=== PATIENT | female | born 2000 | race Caucasian/White ===

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

== ENCOUNTER → 2018-01-01 | Outpatient (REF) | payer OTHER ==
[2018-01-01 13:16] LABS: APPEARANCE, URINE CLEAR (CLEAR); BACTERIA, URINE AUTO NEGATIVE (NEGATIVE); BILIRUBIN, URINE AUTO NEGATIVE (NEGATIVE); BLOOD, URINE BLOOD NEGATIVE (NEGATIVE); COLOR, URINE YELLOW (YELLOW); GLUCOSE, URINE (UA) AUTO NEGATIVE (NEGATIVE); KETONE, URINE AUTO NEGATIVE (NEGATIVE); LEUKOCYTE ESTERASE, URINE AUTO NEGATIVE (NEGATIVE); MUCUS, URINE SMALL (NEGATIVE); NITRITE, URINE AUTO NEGATIVE (NEGATIVE); PROTEIN, URINE AUTO NEGATIVE (NEGATIVE); RBC, URINE AUTO 1 /HPF (0-3); SPECIFIC GRAVITY URINE AUTO 1.023 (1.002-1.035); SQUAMOUS EPITHELIAL CELL UR AU 0 /HPF (0-6); UROBILINOGEN, URINE AUTO 0.2 mg/dL (0.0-2.0); WBC, URINE AUTO 1 /HPF (0-3)
== END ==
LOC: M SMT 12:58
DX: R35.0 Frequency of micturition (principal)

== ENCOUNTER → 2018-05-10 | Outpatient (REF) | payer OTHER ==
[2018-05-10 14:14] LABS: FOLATE 11.4 NG/ML; TOTAL 25(OH) VITAMIN D 19.2 NG/ML (30.0-100.0); VITAMIN B12 LEVEL 805 PG/ML
== END ==
LOC: M LAB REF 11:53
DX: G25.0 Essential tremor (principal)

== ENCOUNTER 2019-08-04 11:50 | Emergency (ER) | payer BC, OTHER ==
[~2019-08-04] VITALS: Ht 154.9 cm; Wt 78.4 kg
[2019-08-04] MEDS ORDERED: PRENTAB29 (12:00)
[2019-08-04 12:41] LABS: BASO # 0.1 10^3/uL (0.0-0.2); BASO % 0.4 % (0.0-1.0); EOS % 0.1 % (0.0-3.0); HEMATOCRIT 42.5 % (36.0-47.0); HEMOGLOBIN 13.4 g/dl (12.0-15.5); LYMPH # 2.1 10^3/uL (1.5-5.0); LYMPH % 15.2 % (24.0-44.0); MEAN CORPUSCULAR HGB CONC 31.5 g/dl (32.0-36.5); MEAN CORPUSCULAR VOLUME 85.7 fl (80.0-96.0); MONO # 0.5 10^3/uL (0.0-0.8); NEUTROPHILS # 10.8 10^3/uL (1.5-8.5); NEUTROPHILS % 79.8 % (36.0-66.0); PLATELET COUNT, AUTOMATED 361 10^3/uL (150-450); RED BLOOD COUNT 4.96 10^6/uL (4.00-5.40); WHITE BLOOD COUNT 13.5 10^3/uL (4.0-10.0)
[2019-08-04 13:22] LABS: BLOOD UREA NITROGEN 12 MG/DL (7-18); CALCIUM LEVEL 8.9 MG/DL (8.5-10.1); CARBON DIOXIDE LEVEL 20 MEQ/L (21-32); CHLORIDE LEVEL 106 MEQ/L (98-107); GLOMERULAR FILTRATION RATE > 60.0 (>60); GLUCOSE, FASTING 67 MG/DL (70-100); HCG, SERUM QUANTITATIVE 61584 MIU/ML; POTASSIUM SERUM 4.5 MEQ/L (3.5-5.1); SODIUM LEVEL 135 MEQ/L (136-145)
[2019-08-04] MEDS ORDERED: NS 1,000 ML IV ONE (14:30)
[2019-08-04] MEDS ORDERED: ONDANSETRON 4MG/2ML VIAL (J2405) IV ONE ×2 (14:30→17:45)
--- NOTE | 2019-08-04 17:22 | REPVR ---
PROCEDURE INFORMATION: Exam: US First Trimester, Transabdominal Exam date and time: 08/04/2019 4:57 PM Age: 19 years old Clinical indication: complicated by abdominal or pelvic pain; Generalized abdominal pain; First trimester; Gestational age or lmp: 6 weeks 2 days; ; Additional info: 6wks, diffuse abd pain TECHNIQUE: Imaging protocol: Real-time transabdominal obstetrical ultrasound of the maternal pelvis and a first trimester , less than 14 weeks 0 days, with image documentation. COMPARISON: No relevant prior studies are available. FINDINGS: GESTATION: Gestation: Single living intrauterine gestation. Heart rate: 136 bpm. No subchorionic bleed. LAST MENSTRUAL PERIOD: LMP: Not provided. BIOMETRICS: [place]-rump length: 0.8 cm = 6 weeks 5 days. Ultrasound estimated date of delivery is 03/24/20. MATERNAL: Uterus: Unremarkable. Cervix: Unremarkable. Right adnexa: The right ovary is normal in size. Left adnexa: The left ovary is enlarged, 4.5 x 4.1 x 3.9 cm. It contains a 3.9 x 3.4 x 2.7 cm anechoic structure with a vascular rim, which is consistent with a corpus luteal cyst. Intraperitoneal: No intraperitoneal free fluid. IMPRESSION: Normal . Ultrasound estimated gestational age is 6 weeks 5 days. Ultrasound estimated date of delivery is 03/24/20. 3.9 cm anechoic cyst in the left ovary. Electronically signed by: Edison Webster On 08/04/2019 17:21:45 PM
--- NOTE | 2019-08-04 17:24 | REPVR ---
PROCEDURE INFORMATION: Exam: US Retroperitoneal Limited, Kidneys Exam date and time: 08/04/2019 4:57 PM Age: 19 years old Clinical indication: Abdominal pain; Generalized; ; Additional info: 6wks, diffuse abd pain TECHNIQUE: Imaging protocol: Real-time ultrasound of the retroperitoneum with image documentation. Examination was focused on the kidneys. COMPARISON: No relevant prior studies available. FINDINGS: Limitations: Only 2 images of the bladder. Right kidney: The right kidney is normal in size. It is 11.0 x 5.9 x 4.8 cm. There is no stone, solid right renal mass, cortical loss or hydronephrosis. Left kidney: The left kidney is normal in size. It is 11.4 x 5.2 x 6.1 cm. There is no stone, solid left renal mass, cortical loss or hydronephrosis. Bladder: The bladder is normal without wall thickening, mass or stone. There are normal bilateral ureteral jets. IMPRESSION: Normal kidneys and bladder. Electronically signed by: Edison Webster On 08/04/2019 17:24:06 PM
[2019-08-04] MEDS ORDERED: KEFL500C17 PO (17:58)
[2019-08-04] MEDS ORDERED: ONDA4TAB6 PO (17:58)
[2019-08-04 18:06] VITALS: BP 130/62
== END 2019-08-04 18:17 | disposition home or self-care (01) ==
LOC: M ED 11:50
DX: O26.891 Other specified pregnancy related conditions, first trimester (principal); M54.5 Low back pain; O20.9 Hemorrhage in early pregnancy, unspecified; O23.41 Unspecified infection of urinary tract in pregnancy, first trimester; O34.81 Maternal care for other abnormalities of pelvic organs, first trimester; N83.202 Unspecified ovarian cyst, left side; Z3A.01 Less than 8 weeks gestation of pregnancy
CPT/HCPCS: 76775; 76801; 80048; 81001; 84702; 85025; 86901; 87086; 93976; 96361; 96374; 96376; 99284; J2405

== ENCOUNTER → 2019-08-16 | Outpatient (CLI) | payer BC ==
[~2019-08-16] MED LIST: KEFL500C17 PO; ONDA4TAB6 PO; PRENTAB29
[2019-08-16 18:27] LABS: BASO # 0.1 10^3/uL (0.0-0.2); BASO % 0.5 % (0.0-1.0); EOS # 0.1 10^3/uL (0.0-0.5); HEMATOCRIT 39.4 % (36.0-47.0); HEMOGLOBIN 12.6 g/dl (12.0-15.5); LYMPH # 2.8 10^3/uL (1.5-5.0); MEAN CORPUSCULAR VOLUME 84.5 fl (80.0-96.0); MONO # 0.6 10^3/uL (0.0-0.8); MONO % 6.1 % (0.0-5.0); NEUTROPHILS # 5.8 10^3/uL (1.5-8.5); PLATELET COUNT, AUTOMATED 307 10^3/uL (150-450); RED BLOOD COUNT 4.66 10^6/uL (4.00-5.40); WHITE BLOOD COUNT 9.4 10^3/uL (4.0-10.0)
[2019-08-16 19:59] LABS: CHLAMYDIA DNA AMPLIFICATION NEGATIVE (NEGATIVE); GC DNA AMPLIFICATION NEGATIVE (NEGATIVE)
[2019-08-17 09:31] LABS: HEPATITIS C VIRUS ABY INDEX < 0.0 INDEX (<0.8); HIV 1&2 SCREEN CENTAUR NEGATIVE (NEGATIVE); RUBELLA IgG QUALITATIVE IMMUNE (IMMUNE)
== END ==
LOC: M PLALAB 13:47
PROVIDERS: ATTEND Advanced Practice Midwife
DX: Z34.01 Encounter for supervision of normal first pregnancy, first trimester (principal)

== ENCOUNTER → 2019-10-31 | Outpatient (CLI) | payer BC ==
--- NOTE | 2019-11-01 05:57 | REP ---
Clinical: Anatomical evaluation. Comparison: 08/04/2019 . Findings: Examination demonstrates a single live intrauterine in cephalic presentation. motion is identified by technologist. Placenta is noted posterior and grade zero without evidence for placenta previa or abruption. Amniotic fluid volume is normal. Cervix measures 3.3 cm in length and appears closed. No evidence for nuchal cord. Gestational age by LMP 18 weeks 6 days with MADHU 03/27/2020 . Gestational age by current measurements 19 weeks 2 days with [facility] 03/24/2020 . FHR equals 163 beats per minute. BPD 4.6 cm 19 weeks 6 days HC 17.0 cm 19 weeks 4 days AC 13.9 cm 19 weeks 2 days FL 2.9 cm 19 weeks 0 days HL 2.8 cm 19 weeks 0 days HC/AC ratio 1.22 Estimated weight 280 grams ( 60th percentile). Anatomical assessment demonstrates normal structures including cranium, choroid plexus, cavum, cerebellum/posterior fossa, lungs, four-chamber heart, diaphragm, stomach, cord insertion/three-vessel cord, kidneys/bladder, spine, and extremities. Impression: 1. Single live intrauterine in cephalic presentation demonstrating appropriate estimated weight and growth. 2. Limited evaluation of the facial features and cardiac ventricular outflow tracts. Remainder of the anatomical assessment is complete and normal.
== END ==
LOC: M WHC 10:33
PROVIDERS: ATTEND Advanced Practice Midwife
DX: Z34.02 Encounter for supervision of normal first pregnancy, second trimester (principal); Z3A.19 19 weeks gestation of pregnancy

== ENCOUNTER → 2019-11-30 | Outpatient (REF) | payer BC | LOC: M PLALAB 08:40 | PROVIDERS: ATTEND Obstetrics & Gynecology | DX: Z34.02 Encounter for supervision of normal first pregnancy, second trimester (principal) ==

== ENCOUNTER → 2019-12-06 | Outpatient (REF) | payer BC ==
[2019-12-06 13:47] LABS: HEMATOCRIT 33.5 % (36.0-47.0); HEMOGLOBIN 10.6 g/dl (12.0-15.5); MEAN CORPUSCULAR HEMOGLOBIN 28.2 pg (27.0-33.0); MEAN CORPUSCULAR HGB CONC 31.6 g/dl (32.0-36.5); MEAN CORPUSCULAR VOLUME 89.1 fl (80.0-96.0); PLATELET COUNT, AUTOMATED 321 10^3/uL (150-450); RED BLOOD COUNT 3.76 10^6/uL (4.00-5.40); WHITE BLOOD COUNT 12.3 10^3/uL (4.0-10.0)
== END ==
LOC: M PLALAB 08:57
PROVIDERS: ATTEND Obstetrics & Gynecology
DX: Z34.02 Encounter for supervision of normal first pregnancy, second trimester (principal)
CPT/HCPCS: 36415; 82950; 85027; 86850; 86900; 86901; J2790

== ENCOUNTER → 2019-12-06 | Outpatient (CLI) | payer BC ==
--- NOTE | 2019-12-07 05:20 | REP ---
Clinical: Anatomical evaluation. Comparison: 10/31/2019 . Findings: Examination demonstrates a single live intrauterine in breech presentation. motion is identified by technologist. Placenta is noted posterior and grade I without evidence for placenta previa or abruption. Amniotic fluid volume is normal. Cervix measures 3.0 cm in length and appears closed. No evidence for nuchal cord. Gestational age by LMP 24 weeks 0 days with [facility] 03/27/2020 . Gestational age by current measurements 23 weeks 6 days with [facility] 03/28/2020 . FHR equals 134 beats per minute. Estimated weight 657 grams ( 46th percentile). Anatomical assessment demonstrates normal structures including cranium, facial features, lungs, four-chamber heart/ventricular outflow tracts, diaphragm, stomach, cord insertion/three-vessel cord, kidneys/bladder. Impression: Single live intrauterine in breech presentation demonstrating appropriate interval growth. In conjunction with prior examination anatomical assessment is complete and normal. No gross abnormalities are identified.
== END ==
LOC: M WHC 08:53
PROVIDERS: ATTEND Obstetrics & Gynecology
DX: Z36.2 Encounter for other antenatal screening follow-up (principal); Z3A.24 24 weeks gestation of pregnancy

== ENCOUNTER → 2020-03-02 | Outpatient (REF) | payer BC ==
[~2020-03-02] MED LIST changes: +IBUP80TA PO; +PRENCHW PO
== END ==
LOC: M SFHCWAGY 17:11
PROVIDERS: ATTEND Obstetrics & Gynecology
DX: Z34.83 Encounter for supervision of other normal pregnancy, third trimester (principal); Z36.85 Encounter for antenatal screening for Streptococcus B

== ENCOUNTER 2020-03-27 21:16 | Inpatient (IN) | payer BC ==
[~2020-03-27] VITALS: Ht 154.9 cm; Wt 81.6 kg
[~2020-03-27 21:16] MED LIST changes: -IBUP80TA PO; -PRENCHW PO
[2020-03-27 22:05] LABS: HEMATOCRIT 34.8 % (36.0-47.0); HEMOGLOBIN 10.9 g/dl (12.0-15.5); MEAN CORPUSCULAR HEMOGLOBIN 25.9 pg (27.0-33.0); MEAN CORPUSCULAR HGB CONC 31.3 g/dl (32.0-36.5); MEAN CORPUSCULAR VOLUME 82.7 fl (80.0-96.0); PLATELET COUNT, AUTOMATED 385 10^3/uL (150-450); RED BLOOD COUNT 4.21 10^6/uL (4.00-5.40)
[2020-03-27] MEDS: miSOPROStol 50 MCG 1/2 TAB (S0191) PO SCH (22:37)
[2020-03-28] VITALS (44 sets, daily range): BP systolic 81–144; BP diastolic 44–111
[2020-03-28] MEDS: miSOPROStol 50 MCG 1/2 TAB (S0191) PO SCH (02:30)
[2020-03-28] MEDS ORDERED: LR 1,000 ML IV SCH (15:10)
[2020-03-28] MEDS ORDERED: OXYTOCIN DRIP 30 UNITS in IV 1 EA IV SCH ×2 (15:15→23:55)
[2020-03-28] MEDS ORDERED: LACTATED RINGER'S 1000 ML IV ONE (15:15)
[2020-03-28] MEDS ORDERED: PROMETHAZINE INJ 25 MG/ML VIAL (J2550) IV ONE (15:15)
[2020-03-28] MEDS ORDERED: BUTORPHANOL 2 MG/ML INJ (J0595) IV ONE (15:15)
[2020-03-28] MEDS ORDERED: FENTANYL 2MCG/ML ROPIVACAINE 0.2% IN 0.9% NACL 100ML IVBAG As Ordered ONE (17:02)
[2020-03-28] MEDS ORDERED: ePHEDrine SULFATE 25 MG/5 ML(5MG/ML) SYRINGE IV PRN (19:15)
[2020-03-28] MEDS ORDERED: diphenhydrAMINE 50MG/ML VIAL (J1200) IV PRN (19:15)
[2020-03-28] MEDS ORDERED: REFRIGERATOR IV KEYS XX PRN (19:15)
[2020-03-28] MEDS ORDERED: FENTANYL/ROPIVACAINE/NACL BAG 100 ML EPIDURAL SCH (19:15)
[2020-03-28] MEDS ORDERED: EPIDURAL/PCA KEYS XX PRN (19:15)
[2020-03-28] MEDS ORDERED: LACTATED RINGER'S 1000 ML IV PRN (19:15)
[2020-03-28] MEDS ORDERED: EPIDURAL COMMENT XX SCH (19:15)
[2020-03-28] MEDS ORDERED: ONDANSETRON 4MG/2ML VIAL IV PRN (19:15)
[2020-03-28] MEDS ORDERED: NALOXONE INJ 0.4MG/1ML VIAL (J2310 PER 1MG) IV PRN (19:15)
[2020-03-29] MEDS ORDERED: IBUPROFEN 600MG TAB PO PRN
[2020-03-29] MEDS ORDERED: METHYLERGONOVINE MALEATE 0.2 MG TAB PO PRN
[2020-03-29] MEDS ORDERED: ACETAMINOPHEN TAB 650MG DOSE (2X325MG) PO PRN
[2020-03-29] MEDS ORDERED: DIBUCAINE 1% OINTMENT 30GM TOP PRN
[2020-03-29] MEDS ORDERED: RHOGAM 300 MCG (1500 IU) INJ (J2790) IM SCH
[2020-03-29] MEDS ORDERED: ACETAMINOPHEN 500 MG TAB PO PRN
[2020-03-29] MEDS ORDERED: MEASLES,MUMPS,RUBELLA VACCINE INJ (MMR-II) (90707) SC SCH
[2020-03-29] MEDS ORDERED: IBUPROFEN 800 MG TAB PO PRN
[2020-03-29 00:13] VITALS: BP 98/54
[2020-03-29 00:33] VITALS: BP 107/60
[2020-03-29 01:00] VITALS: BP 97/61
[2020-03-29] MEDS: DOCUSATE SODIUM 100 MG CAP PO PRN (04:50)
[2020-03-29 06:00] VITALS: BP_SYST 107; BP_SYST 96; BP_DIAS 51; BP_DIAS 54
[2020-03-29] MEDS: PRENATAL VITAMINS CHEWABLE TABLET PO SCH (09:15)
[2020-03-29 11:28] LABS: HEP C VIRUS AB INDEX SOURCE PT 0.2 INDEX (0.0-0.8); HEPATITIS B SURFACE ANTIGEN NEGATIVE (NEGATIVE)
[2020-03-29 11:41] LABS: HIV SCREEN CENTAUR SOURCE NEGATIVE (NEGATIVE)
[2020-03-29 18:00] VITALS: BP 109/67
[2020-03-30 06:00] VITALS: BP 116/71
[2020-03-30] MEDS: DOCUSATE SODIUM 100 MG CAP PO PRN (07:57)
[2020-03-30] MEDS: PRENATAL VITAMINS CHEWABLE TABLET PO SCH (07:57)
--- NOTE | 2020-03-30 09:55 | IPNPDOC ---
Progress Note Date of Service: Mar 30, 2020 Day#: 2 Progress Note Progress Note Post Day 2 S: Amairani is a 19yo [id number] s/p uncomplicated at 40wk after undergoing IOL for pelvic pain, doing well PPD 1. She has mild cramping that is relieved with ibuprofen. Voiding without difficulty. Ambulating without issue. No n/v, tolerating regular diet. without problem. No f/c/CP/SOB. O: Vitals wnl, afebrile A+O x3 Fundus firm at u-2cm No pain with palpation of calves, trace edema BLE A: Amairani is a 19yo [id number] s/p uncomplicated at 40wk after undergoing IOL for pelvic pain, doing well PPD 1. Hemodynamically stable with no e/o infection. P: -Discharge to home -Regular diet -Vaginal rest 6 weeks, no heavy lifting -Undecided on contraception -Discussed and return precautions at length -Follow up at [facility] for 6wk PP visit Shae Phipps MD VS, I&O, 24H, Fishbone Vital Signs/I&O Vital Signs Date Time Temp Pulse Resp B/P (MAP) Pulse Ox O2 Delivery O2 Flow Rate FiO2 03/30/20 06:00 96.7 87 16 116/71 (86) 03/29/20 18:00 100 Room Air Shae Phipps MD Mar 30, 2020 09:55
--- NOTE | 2020-03-30 09:58 | DS.PDOC ---
Discharge Summary General Date of Admission Mar 27, 2020 at 21:16 Date of Discharge Mar 30, 2020 Discharge Summary PROCEDURES PERFORMED DURING STAY: spontaneous vaginal delivery at term ADMITTING DIAGNOSES: 1. Term SIUP with pelvic pain DISCHARGE DIAGNOSES: 1. Term SIUP with pelvic pain, delivered COMPLICATIONS/CHIEF COMPLAINT: IOL. HISTORY OF PRESENT ILLNESS/HOSPITAL COURSE: Amairani is a 19yo [id number] s/p uncomplicated at 40wk after undergoing IOL for pelvic pain, doing well PPD 1. At time of discharge vitals are wnl, benign exam. She is hemodynamically stable with no e/o infection. DISCHARGE MEDICATIONS: Please see below. ALLERGIES: Please see below. PHYSICAL EXAMINATION ON DISCHARGE: Vitals wnl, afebrile A+O x3 Fundus firm at u-2cm No pain with palpation of calves, trace edema BLE LABORATORY DATA: Please see below. DISCHARGE Instructions/PLAN: -Discharge to home -Regular diet -Vaginal rest 6 weeks, no heavy lifting -Undecided on contraception -Discussed and return precautions at length -Follow up at [facility] for 6wk PP visit DISPOSITION: home DISCHARGE CONDITION: Stable TIME SPENT ON DISCHARGE: Greater than 20 minutes. Shae Phipps MD Vital Signs/I&Os Vital Signs Date Time Temp Pulse Resp B/P (MAP) Pulse Ox O2 Delivery O2 Flow Rate FiO2 03/30/20 06:00 96.7 87 16 116/71 (86) 03/29/20 18:00 100 Room Air Discharge Medications Miscellaneous Medications [] , (Reported) Allergies Coded Allergies: No Known Allergies (Unverified , 08/04/19) Shae Phipps MD Mar 30, 2020 09:57
[2020-03-30] MEDS ORDERED: IBUP80TA PO (10:01)
[2020-03-30] MEDS ORDERED: PRENCHW PO (10:01)
== END 2020-03-30 15:20 | disposition home or self-care (01) | DRG 560 ==
LOC: M LDI 21:16 → M OBS 03-29 00:46
PROVIDERS: ADMIT Advanced Practice Midwife; ATTEND Advanced Practice Midwife
PROC: 3E0P7GC Introduction of Other Therapeutic Substance into Female Reproductive, Via Natural or Artificial Opening (ICD-10-PCS; 2020-03-27)
PROC: 10907ZC Drainage of Amniotic Fluid, Therapeutic from Products of Conception, Via Natural or Artificial Opening (ICD-10-PCS; 2020-03-28)
PROC: 10E0XZZ Delivery of Products of Conception, External Approach (ICD-10-PCS; principal; 2020-03-29)
PROC: 0KQM0ZZ Repair Perineum Muscle, Open Approach (ICD-10-PCS; 2020-03-29)
DX: O99.892 Other specified diseases and conditions complicating childbirth (principal); Z3A.40 40 weeks gestation of pregnancy; O26.893 Other specified pregnancy related conditions, third trimester; O70.1 Second degree perineal laceration during delivery; Z37.0 Single live birth; R10.2 Pelvic and perineal pain; O69.1XX0 Labor and delivery complicated by cord around neck, with compression, not applicable or unspecified

== ENCOUNTER → 2020-07-17 | Outpatient (REF) | payer BC, OTHER, MEDICAID ==
[~2020-07-17] MED LIST changes: +IBUP80TA PO; +PRENCHW PO
== END ==
LOC: M SFHCWAGY 18:46
PROVIDERS: ATTEND Advanced Practice Midwife
DX: Z12.4 Encounter for screening for malignant neoplasm of cervix (principal)

== ENCOUNTER → 2021-01-02 | Outpatient (CLI) | payer OTHER, MEDICAID ==
--- NOTE | 2021-01-02 17:53 | REP ---
INDICATION: PELVIC PAIN. COMPARISON: None. TECHNIQUE: Transabdominal and transvaginal scanning were performed. FINDINGS: Uterine dimensions are normal at 8.8 x 3.5 x 5.1 cm. Endometrial echo is 0.4 cm thick and centrally placed. No free fluid is seen in the cul-de-sac. Visualized bladder nuñez are smooth. IUD is seen in place in the uterine endometrium. Visualized bladder nuñez are smooth. The right ovary has dimensions of 2.5 x 1.7 x 2.3 cm. It's Doppler flow is normal with a resistive index of 0.49. The left ovary dimensions are normal as well at 3.1 x 2.1 x 3.0 cm. It's Doppler flow was normal with resistive index of 0.50. The left ovary contains a 2.0 x 1.6 x 2.0 cm cystic area consistent with an involuting follicle. IMPRESSION: Normal pelvic sonography. IUD appears in good position in the uterine endometrium. <Electronically signed by Aureliano Leyva > 01/02/21 [id number]
== END ==
LOC: M WHC 14:53
PROVIDERS: ATTEND Advanced Practice Midwife
DX: R10.2 Pelvic and perineal pain (principal)

== ENCOUNTER → 2022-02-03 | Outpatient (CLI) | payer OTHER ==
[2022-02-03 18:54] LABS: BASO % 0.3 % (0.0-1.0); EOS # 0.2 10^3/uL (0.0-0.5); EOS % 1.5 % (0.0-3.0); HEMATOCRIT 33.3 % (36.0-47.0); HEMOGLOBIN 10.9 g/dl (12.0-15.5); LYMPH # 2.6 10^3/uL (1.5-5.0); MEAN CORPUSCULAR HEMOGLOBIN 27.6 pg (27.0-33.0); MEAN CORPUSCULAR HGB CONC 32.7 g/dl (32.0-36.5); MEAN CORPUSCULAR VOLUME 84.3 fl (80.0-96.0); MONO # 0.5 10^3/uL (0.0-0.8); MONO % 4.6 % (2.0-8.0); NEUTROPHILS # 6.7 10^3/uL (1.5-8.5); NEUTROPHILS % 66.9 % (36.0-66.0); PLATELET COUNT, AUTOMATED 298 10^3/uL (150-450); RED BLOOD COUNT 3.95 10^6/uL (4.00-5.40)
[2022-02-03 20:14] LABS: HEPATITIS C VIRUS ABY INDEX < 0.0 INDEX (<0.8); HIV 1&2 SCREEN CENTAUR NEGATIVE (NEGATIVE)
[2022-02-03 20:39] LABS: GC DNA AMPLIFICATION NEGATIVE (NEGATIVE)
== END ==
LOC: M PLALAB 14:46
PROVIDERS: ATTEND Obstetrics & Gynecology
DX: Z34.82 Encounter for supervision of other normal pregnancy, second trimester (principal); Z3A.16 16 weeks gestation of pregnancy

== ENCOUNTER → 2022-02-24 | Outpatient (CLI) | payer OTHER | LOC: M WHC 14:08 | PROVIDERS: ATTEND Obstetrics & Gynecology | DX: Z34.92 Encounter for supervision of normal pregnancy, unspecified, second trimester (principal); Z3A.19 19 weeks gestation of pregnancy ==

== ENCOUNTER → 2022-03-28 | Outpatient (CLI) | payer OTHER ==
[2022-03-28 13:24] LABS: HEMATOCRIT 30.9 % (36.0-47.0); MEAN CORPUSCULAR HEMOGLOBIN 27.5 pg (27.0-33.0); MEAN CORPUSCULAR HGB CONC 32.4 g/dl (32.0-36.5); MEAN CORPUSCULAR VOLUME 85.1 fl (80.0-96.0); PLATELET COUNT, AUTOMATED 353 10^3/uL (150-450); RED BLOOD COUNT 3.63 10^6/uL (4.00-5.40); WHITE BLOOD COUNT 11.8 10^3/uL (4.0-10.0)
[2022-03-28 15:01] LABS: GC DNA AMPLIFICATION NEGATIVE (NEGATIVE)
== END ==
LOC: M PLALAB 08:52
PROVIDERS: ATTEND Advanced Practice Midwife
DX: Z36.89 Encounter for other specified antenatal screening (principal)

== ENCOUNTER → 2022-04-07 | Outpatient (CLI) | payer OTHER | LOC: M LAB 07:24 | PROVIDERS: ATTEND Advanced Practice Midwife | DX: O99.810 Abnormal glucose complicating pregnancy (principal) ==

== ENCOUNTER → 2022-04-23 | Outpatient (CLI) | payer OTHER | LOC: M WHC 15:26 | PROVIDERS: ATTEND Advanced Practice Midwife | DX: Z36.2 Encounter for other antenatal screening follow-up (principal); Z3A.28 28 weeks gestation of pregnancy ==

== ENCOUNTER → 2022-06-06 | Outpatient (CLI) | payer OTHER | LOC: M WHC 13:00 | PROVIDERS: ATTEND Obstetrics & Gynecology | DX: O26.843 Uterine size-date discrepancy, third trimester (principal); Z3A.34 34 weeks gestation of pregnancy ==

== ENCOUNTER → 2022-06-20 | Outpatient (REF) | payer OTHER | LOC: M SFHCWAGY 12:40 | PROVIDERS: ATTEND Advanced Practice Midwife | DX: Z34.93 Encounter for supervision of normal pregnancy, unspecified, third trimester (principal) ==

== ENCOUNTER 2022-07-22 19:15 | Inpatient (IN) | payer OTHER ==
[~2022-07-22] VITALS: Ht 154.9 cm; Wt 80.8 kg
[2022-07-22] VITALS (8 sets, daily range): BP systolic 95–121; BP diastolic 57–81
[2022-07-22] MEDS ORDERED: TUMS750C22 PO (19:55)
[2022-07-22] MEDS ORDERED: TRANEXAMIC ACID INJection 1,000 MG in NS 100 ML IV PRN (19:55)
[2022-07-22] MEDS ORDERED: OXYTOCIN DRIP 30 UNITS in IV 1 EA IV PRN ×4 (19:55)
[2022-07-22] MEDS ORDERED: FERR324T21 PO (19:55)
[2022-07-22] MEDS ORDERED: CARBOPROST TROMETHAMINE 250 MCG/ML AMP IM PRN (19:55)
[2022-07-22] MEDS ORDERED: ACET325C5 PO (19:55)
[2022-07-22] MEDS ORDERED: METHYLERGONOVINE MALEATE 0.2 MG/ML VIAL (J2210) IM PRN (19:55)
[2022-07-22] MEDS ORDERED: LACTATED RINGER'S 1000 ML IV PRN (19:55)
[2022-07-22 20:04] LABS: HEMATOCRIT 34.3 % (36.0-47.0); HEMOGLOBIN 10.7 g/dl (12.0-15.5); MEAN CORPUSCULAR HEMOGLOBIN 25.7 pg (27.0-33.0); MEAN CORPUSCULAR HGB CONC 31.2 g/dl (32.0-36.5); MEAN CORPUSCULAR VOLUME 82.5 fl (80.0-96.0); PLATELET COUNT, AUTOMATED 422 10^3/uL (150-450); RED BLOOD COUNT 4.16 10^6/uL (4.00-5.40); WHITE BLOOD COUNT 11.9 10^3/uL (4.0-10.0)
[2022-07-22] MEDS ORDERED: OXYTOCIN DRIP 30 UNITS in IV 1 EA IV SCH (20:15)
[2022-07-22] MEDS ORDERED: CALCIUM CARBONATE 500 MG CHEW U/D PO ONE (22:35)
[2022-07-23] VITALS (55 sets, daily range): BP systolic 93–129; BP diastolic 50–78
[2022-07-23] MEDS ORDERED: PANTOPRAZOLE 40MG VIAL IV ONE (01:00)
[2022-07-23] MEDS ORDERED: EPIDURAL/PCA KEYS XX PRN (01:35)
[2022-07-23] MEDS ORDERED: diphenhydrAMINE 50MG/ML VIAL IV PRN (01:35)
[2022-07-23] MEDS ORDERED: FENTANYL/ROPIVACAINE/NACL BAG 100 ML EPIDURAL SCH (01:35)
[2022-07-23] MEDS ORDERED: LR 500 ML IV PRN (01:35)
[2022-07-23] MEDS ORDERED: NALOXONE INJ 0.4MG/1ML VIAL IV PRN (01:35)
[2022-07-23] MEDS ORDERED: ONDANSETRON 4MG 2ML VIAL IV PRN (01:35)
[2022-07-23] MEDS: ePHEDrine SULFATE 25 MG/5 ML(5MG/ML) SYRINGE IVP PRN ×3 (03:15→03:22)
[2022-07-23] MEDS ORDERED: DIBUCAINE 1% OINTMENT 30GM TOP PRN (05:55)
[2022-07-23] MEDS ORDERED: DOCUSATE SODIUM 100MG CAPSULE PO PRN (05:55)
[2022-07-23] MEDS ORDERED: METHYLERGONOVINE MALEATE 0.2 MG TAB PO PRN (05:55)
[2022-07-23] MEDS ORDERED: RHOGAM 300MCG (1500IU) INJ IM SCH (05:55)
[2022-07-23] MEDS ORDERED: ceFAZolin SOD 2 GM in IV 1 EA IV ONE (06:20)
[2022-07-23] MEDS: PRENATAL VITAMINS CHEWABLE TABLET PO SCH (08:35)
[2022-07-23] MEDS: IBUPROFEN 600MG TAB PO PRN ×2 (09:51→17:42)
[2022-07-23] MEDS: ACETAMINOPHEN 500 MG TAB PO PRN ×2 (12:50→20:15)
[2022-07-24 06:00] VITALS: BP 108/69
[2022-07-24] MEDS: PRENATAL VITAMINS CHEWABLE TABLET PO SCH (07:41)
[2022-07-24] MEDS: ACETAMINOPHEN 500 MG TAB PO PRN (15:03)
[2022-07-25] MEDS ORDERED: MEASLES,MUMPS,RUBELLA VACCINE INJ (MMR-II) SC.IMMUN ONE (09:00)
== END 2022-07-24 18:05 | disposition home or self-care (01) | DRG 541 ==
LOC: M LDI 19:15 → M OBS 07-23 07:45
PROVIDERS: ADMIT Obstetrics & Gynecology; ATTEND Obstetrics & Gynecology
PROC: 3E033VJ Introduction of Other Hormone into Peripheral Vein, Percutaneous Approach (ICD-10-PCS; 2022-07-22)
PROC: 10E0XZZ Delivery of Products of Conception, External Approach (ICD-10-PCS; principal; 2022-07-23)
PROC: 10D17Z9 Manual Extraction of Products of Conception, Retained, Via Natural or Artificial Opening (ICD-10-PCS; 2022-07-23)
DX: O48.0 Post-term pregnancy (principal); O77.0 Labor and delivery complicated by meconium in amniotic fluid; Z3A.40 40 weeks gestation of pregnancy; O69.81X0 Labor and delivery complicated by cord around neck, without compression, not applicable or unspecified; Z37.0 Single live birth; O73.0 Retained placenta without hemorrhage

== ENCOUNTER → 2023-06-11 | Outpatient (REF) | payer OTHER ==
[~2023-06-11] MED LIST changes: +ACET325C5 PO; +FERR324T21 PO; +TUMS750C22 PO
[2023-06-11 18:31] LABS: APPEARANCE, URINE HAZY (CLEAR); BACTERIA, URINE AUTO 1+ (NEGATIVE); BILIRUBIN, URINE AUTO NEGATIVE (NEGATIVE); BLOOD, URINE BLOOD 2+ (NEGATIVE); COLOR, URINE AMBER (YELLOW); GLUCOSE, URINE (UA) AUTO NEGATIVE (NEGATIVE); KETONE, URINE AUTO NEGATIVE (NEGATIVE); LEUKOCYTE ESTERASE, URINE AUTO TRACE (NEGATIVE); MUCUS, URINE LARGE (NEGATIVE); NITRITE, URINE AUTO POSITIVE (NEGATIVE); PROTEIN, URINE AUTO 1+ mg/dL (NEGATIVE); RBC, URINE AUTO 0 /HPF (0-3); SPECIFIC GRAVITY URINE AUTO 1.029 (1.002-1.035); SQUAMOUS EPITHELIAL CELL UR AU 1 /HPF (0-6); UROBILINOGEN, URINE AUTO 0.2 mg/dL (0.0-2.0); WBC, URINE AUTO 6 /HPF (0-3)
[2023-06-11 19:44] LABS: CHLAMYDIA DNA AMPLIFICATION NEGATIVE (NEGATIVE); GC DNA AMPLIFICATION NEGATIVE (NEGATIVE)
== END ==
LOC: M SFHCWAGY 15:37
PROVIDERS: ATTEND Obstetrics & Gynecology
DX: Z12.4 Encounter for screening for malignant neoplasm of cervix (principal); N92.3 Ovulation bleeding

== ENCOUNTER → 2023-08-03 | Outpatient (CLI) | payer OTHER | LOC: M WHC 14:59 | PROVIDERS: ATTEND Obstetrics & Gynecology | DX: N92.3 Ovulation bleeding (principal); R10.2 Pelvic and perineal pain ==

== ENCOUNTER → 2023-08-04 | Outpatient (CLI) | payer OTHER ==
[2023-08-04 16:08] LABS: LDH LACTATE DEHYDROGENASE 117 U/L (120-246)
[2023-08-04 21:19] LABS: CARCINOEMBRYONIC ANTIGEN < 2.0 NG/ML (<2.5)
[2023-08-04 21:34] LABS: CA19-9 TUMOR MARKER,CARBOHYDRA < 1.2 U/ML (<35.0)
== END ==
LOC: M PLALAB 12:29
PROVIDERS: ATTEND Obstetrics & Gynecology
DX: N83.9 Noninflammatory disorder of ovary, fallopian tube and broad ligament, unspecified (principal)

== ENCOUNTER → 2023-08-20 | Outpatient (CLI) | payer OTHER | LOC: M PLARAD 07:36 | PROVIDERS: ATTEND Obstetrics & Gynecology | DX: R93.89 Abnormal findings on diagnostic imaging of other specified body structures (principal) ==

== ENCOUNTER → 2023-12-22 | Outpatient (CLI) | payer OTHER ==
[~2023-12-22] MED LIST changes: +ONDA-282 PO; -ONDA4TAB6 PO
== END ==
LOC: M WHC 06:47
PROVIDERS: ATTEND Obstetrics & Gynecology
DX: R10.2 Pelvic and perineal pain (principal)

== ENCOUNTER → 2024-03-08 | Outpatient (CLI) | payer OTHER ==
[2024-03-08 10:07] LABS: HEMOGLOBIN 11.7 g/dl (12.0-15.5); MEAN CORPUSCULAR HEMOGLOBIN 27.3 pg (27.0-33.0); MEAN CORPUSCULAR HGB CONC 32.5 g/dl (32.0-36.5); MEAN CORPUSCULAR VOLUME 84.1 fl (80.0-96.0); PLATELET COUNT, AUTOMATED 340 10^3/uL (150-450); RED BLOOD COUNT 4.28 10^6/uL (4.00-5.40); WHITE BLOOD COUNT 11.5 10^3/uL (4.0-10.0)
[2024-03-08 10:41] LABS: HIV 1&2 SCREEN NEGATIVE (NEGATIVE)
[2024-03-08 10:48] LABS: HEPATITIS C VIRUS ABY INDEX < 0.02 INDEX (<0.8)
[2024-03-08 11:40] LABS: GC DNA AMPLIFICATION NEGATIVE (NEGATIVE)
== END ==
LOC: M PLALAB 07:15
PROVIDERS: ATTEND Nurse Practitioner Women's Health
DX: Z34.80 Encounter for supervision of other normal pregnancy, unspecified trimester (principal)

== ENCOUNTER → 2024-03-09 | Outpatient (CLI) | payer OTHER ==
[2024-03-09 18:33] LABS: HEMOGLOBIN A1c 4.9 % (4.0-6.0)
== END ==
LOC: M PLALAB 15:30
PROVIDERS: ATTEND Obstetrics & Gynecology
DX: R42 Dizziness and giddiness (principal); Z3A.11 11 weeks gestation of pregnancy; Z34.80 Encounter for supervision of other normal pregnancy, unspecified trimester

== ENCOUNTER → 2024-03-17 | Outpatient (CLI) | payer OTHER ==
[2024-03-17 10:54] LABS: HEMATOCRIT 33.7 % (36.0-47.0); HEMOGLOBIN 10.8 g/dl (12.0-15.5); MEAN CORPUSCULAR HEMOGLOBIN 27.3 pg (27.0-33.0); MEAN CORPUSCULAR VOLUME 85.1 fl (80.0-96.0); PLATELET COUNT, AUTOMATED 355 10^3/uL (150-450); RED BLOOD COUNT 3.96 10^6/uL (4.00-5.40)
== END ==
LOC: M PLALAB 07:00
PROVIDERS: ATTEND Obstetrics & Gynecology
DX: Z34.81 Encounter for supervision of other normal pregnancy, first trimester (principal)

== ENCOUNTER → 2024-05-05 | Outpatient (CLI) | payer OTHER | LOC: M WHC 14:19 | PROVIDERS: ATTEND Obstetrics & Gynecology | DX: Z34.82 Encounter for supervision of other normal pregnancy, second trimester (principal) ==

== ENCOUNTER → 2024-06-20 | Outpatient (CLI) | payer OTHER ==
[2024-06-20 15:41] LABS: GLUCOSE CHALLENGE TEST 1 HOUR 126 MG/DL (LESS THAN 140)
[2024-06-20 15:44] LABS: HEMATOCRIT 34.8 % (36.0-47.0); MEAN CORPUSCULAR HEMOGLOBIN 26.9 pg (27.0-33.0); MEAN CORPUSCULAR HGB CONC 31.6 g/dl (32.0-36.5); MEAN CORPUSCULAR VOLUME 85.1 fl (80.0-96.0); PLATELET COUNT, AUTOMATED 400 10^3/uL (150-450); RED BLOOD COUNT 4.09 10^6/uL (4.00-5.40)
[2024-06-20 16:10] LABS: HIV 1&2 SCREEN NEGATIVE (NEGATIVE)
[2024-06-20 16:17] LABS: HEPATITIS C VIRUS ABY INDEX < 0.02 INDEX (<0.8)
[2024-06-20 17:09] LABS: GC DNA AMPLIFICATION NEGATIVE (NEGATIVE)
== END ==
LOC: M PLALAB 11:09
PROVIDERS: ATTEND Advanced Practice Midwife
DX: Z34.82 Encounter for supervision of other normal pregnancy, second trimester (principal)
CPT/HCPCS: 36415; 82950; 85027; 86780; 86803; 86850; 86900; 86901; 87389; 87810; 87850; J2790

== ENCOUNTER → 2024-07-01 | Outpatient (CLI) | payer OTHER | LOC: M WHC 11:15 | PROVIDERS: ATTEND Advanced Practice Midwife | DX: Z34.82 Encounter for supervision of other normal pregnancy, second trimester (principal); Z3A.27 27 weeks gestation of pregnancy ==

== ENCOUNTER → 2024-08-12 | Outpatient (CLI) | payer OTHER | LOC: M WHC 12:22 | PROVIDERS: ATTEND Obstetrics & Gynecology | DX: Z36.2 Encounter for other antenatal screening follow-up (principal); Z3A.33 33 weeks gestation of pregnancy ==

== ENCOUNTER → 2024-08-16 | Outpatient (CLI) | payer OTHER ==
[2024-08-16 18:32] LABS: HEMATOCRIT 35.5 % (36.0-47.0); HEMOGLOBIN 10.9 g/dl (12.0-15.5); MEAN CORPUSCULAR HEMOGLOBIN 25.3 pg (27.0-33.0); MEAN CORPUSCULAR HGB CONC 30.7 g/dl (32.0-36.5); MEAN CORPUSCULAR VOLUME 82.4 fl (80.0-96.0); PLATELET COUNT, AUTOMATED 438 10^3/uL (150-450); RED BLOOD COUNT 4.31 10^6/uL (4.00-5.40); WHITE BLOOD COUNT 10.3 10^3/uL (4.0-10.0)
== END ==
LOC: M PLALAB 14:24
PROVIDERS: ATTEND Nurse Practitioner Family
DX: R42 Dizziness and giddiness (principal)

== ENCOUNTER → 2024-08-30 | Outpatient (REF) | payer OTHER, MEDICAID | LOC: M SFHCWAGY 16:58 | PROVIDERS: ATTEND Nurse Practitioner Family | DX: Z34.93 Encounter for supervision of normal pregnancy, unspecified, third trimester (principal); Z3A.36 36 weeks gestation of pregnancy ==

== ENCOUNTER 2024-09-06 15:15 | Outpatient (CLI) | payer OTHER ==
[~2024-09-06] VITALS: Ht 154.9 cm; Wt 85.0 kg
[~2024-09-06 15:15] MED LIST changes: +ALBUTEROL SULFATE 2.5MG/0.5ML INH NEB SOLN INH PRN; +EPINEPHrine INJ 1 MG/ML 1ML AMP IM PRN; +diphenhydrAMINE 50MG/ML VIAL IV PRN; +methylPREDNISolone 125MG 2ML VIAL IV PRN
[2024-09-06] MEDS: diphenhydrAMINE 25MG CAP PO ONE (15:23)
[2024-09-06] MEDS: ACETAMINOPHEN 650 MG PO ONE (15:23)
[2024-09-06] MEDS: IRON SUCROSE 200 MG IVP IV ONE (15:23)
[2024-09-06 15:27] VITALS: BP 142/88; O2SAT 97
[2024-09-06 16:00] VITALS: BP 119/64; O2SAT 97
== END 2024-09-06 16:00 ==
LOC: M INFU 15:15
PROVIDERS: ATTEND Obstetrics & Gynecology
DX: D50.9 Iron deficiency anemia, unspecified (principal)
CPT/HCPCS: 96374; J1756

== ENCOUNTER 2024-09-13 15:35 | Outpatient (CLI) | payer OTHER ==
[~2024-09-13] VITALS: Ht 154.9 cm; Wt 85.0 kg
[2024-09-13 15:34] VITALS: BP 130/76; O2SAT 98
[2024-09-13] MEDS: IRON SUCROSE 200 MG IVP IV ONE (15:44)
[2024-09-13] MEDS ORDERED: diphenhydrAMINE 25MG CAP PO ONE (16:00)
[2024-09-13] MEDS ORDERED: ACETAMINOPHEN 650 MG PO ONE (16:00)
[2024-09-13 16:11] VITALS: BP 109/69; O2SAT 98
== END 2024-09-13 16:10 ==
LOC: M INFU 15:35
PROVIDERS: ATTEND Obstetrics & Gynecology
DX: D50.9 Iron deficiency anemia, unspecified (principal)
CPT/HCPCS: 96374; J1756

== ENCOUNTER 2024-09-29 10:16 | Inpatient (IN) | payer MEDICAID, OTHER ==
[2024-09-29] VITALS (33 sets, daily range): BP systolic 99–125; BP diastolic 51–81; O2SAT 98–99
[~2024-09-29] VITALS: Ht 154.9 cm; Wt 86.4 kg
[~2024-09-29 10:16] MED LIST changes: -ALBUTEROL SULFATE 2.5MG/0.5ML INH NEB SOLN INH PRN; -EPINEPHrine INJ 1 MG/ML 1ML AMP IM PRN; -diphenhydrAMINE 50MG/ML VIAL IV PRN; -methylPREDNISolone 125MG 2ML VIAL IV PRN
[2024-09-29] MEDS ORDERED: HOME MED LIST COMPLETE! XX SCH (10:45)
[2024-09-29 12:32] LABS: HEMATOCRIT 33.9 % (36.0-47.0); HEMOGLOBIN 10.8 g/dl (12.0-15.5); MEAN CORPUSCULAR HEMOGLOBIN 26.2 pg (27.0-33.0); MEAN CORPUSCULAR HGB CONC 31.9 g/dl (32.0-36.5); MEAN CORPUSCULAR VOLUME 82.1 fl (80.0-96.0); PLATELET COUNT, AUTOMATED 347 10^3/uL (150-450); RED BLOOD COUNT 4.13 10^6/uL (4.00-5.40); WHITE BLOOD COUNT 9.7 10^3/uL (4.0-10.0)
[2024-09-29] MEDS ORDERED: OXYTOCIN DRIP 30 UNITS in IV 1 EA IV PRN (13:00)
[2024-09-29] MEDS ORDERED: METHYLERGONOVINE MALEATE 0.2MG/ML 1ML VIAL IM PRN (13:00)
[2024-09-29] MEDS ORDERED: OXYTOCIN INJ 10UNITS/ML 1ML VIAL IM PRN (13:00)
[2024-09-29] MEDS ORDERED: CARBOPROST TROMETHAMINE 250 MCG/ML AMP IM PRN (13:00)
[2024-09-29] MEDS ORDERED: LIDOCAINE 1% MDV 20ML VIAL INFIL PRN (13:00)
[2024-09-29 13:28] LABS: HIV 1&2 SCREEN NEGATIVE (NEGATIVE)
[2024-09-29 13:36] LABS: HEPATITIS C VIRUS ABY INDEX 0.04 INDEX (<0.8)
[2024-09-29] MEDS: OXYTOCIN DRIP 30 UNITS in IV 1 EA IV SCH (13:40)
[2024-09-29] MEDS: LR 1,000 ML IV SCH (20:08)
[2024-09-29] MEDS ORDERED: ePHEDrine SULFATE 25 MG/5 ML(5MG/ML) SYRINGE IVP PRN (21:05)
[2024-09-29] MEDS ORDERED: EPIDURAL/PCA KEYS XX PRN (21:05)
[2024-09-29] MEDS ORDERED: FENTANYL/ROPIVACAINE/NACL BAG 100 ML EPIDURAL SCH (21:05)
[2024-09-29] MEDS ORDERED: diphenhydrAMINE 50MG/ML VIAL IV PRN (21:05)
[2024-09-29] MEDS ORDERED: ONDANSETRON 4MG 2ML VIAL IV PRN (21:05)
[2024-09-29] MEDS ORDERED: NALOXONE INJ 0.4MG/1ML VIAL IV PRN (21:05)
[2024-09-29] MEDS ORDERED: LR 500 ML IV PRN (21:05)
[2024-09-29] MEDS ORDERED: fentaNYL 100 MCG/2 ML INJECTION As Ordered ONE (21:13)
[2024-09-29] MEDS: TRANEXAMIC ACID INJection 1,000 MG in NS 100 ML IV PRN (21:59)
[2024-09-29] MEDS: OXYTOCIN DRIP 30 UNITS in IV 1 EA IV PRN (21:59)
[2024-09-29] MEDS ORDERED: DOCUSATE SODIUM 100MG CAPSULE PO PRN (22:25)
[2024-09-29] MEDS ORDERED: ACETAMINOPHEN 325 MG TAB PO PRN (22:25)
[2024-09-29] MEDS ORDERED: METHYLERGONOVINE MALEATE 0.2 MG TAB PO PRN (22:25)
[2024-09-29] MEDS ORDERED: DIBUCAINE 1% OINTMENT 30GM TOP PRN (22:25)
[2024-09-29] MEDS ORDERED: RHOGAM 300MCG (1500IU) INJ IM SCH (22:25)
[2024-09-30 00:33] VITALS: BP 109/57; O2SAT 99
[2024-09-30] MEDS: IBUPROFEN 800 MG TAB PO PRN (05:20)
[2024-09-30] MEDS: ACETAMINOPHEN 500 MG TAB PO PRN (06:19)
[2024-09-30 06:22] VITALS: BP 122/75; O2SAT 98
[2024-09-30] MEDS: PRENATAL VITAMINS CHEWABLE TABLET PO SCH (09:21)
[2024-09-30] MEDS: IBUPROFEN 600MG TAB PO PRN (12:34)
[2024-09-30 18:00] VITALS: BP 107/69; O2SAT 99
[2024-10-01 05:57] VITALS: BP 112/68; O2SAT 97
[2024-10-01] MEDS: MEASLES,MUMPS,RUBELLA VACCINE INJ (MMR-II) SC.IMMUN ONE (08:16)
== END 2024-10-01 16:02 | disposition home or self-care (01) | DRG 560 ==
LOC: M LDI 10:16 → M OBS 09-30 00:22
PROVIDERS: ADMIT Advanced Practice Midwife; ATTEND Advanced Practice Midwife
PROC: 10E0XZZ Delivery of Products of Conception, External Approach (ICD-10-PCS; principal; 2024-09-29)
PROC: 0HQ9XZZ Repair Perineum Skin, External Approach (ICD-10-PCS; 2024-09-29)
PROC: 3E033VJ Introduction of Other Hormone into Peripheral Vein, Percutaneous Approach (ICD-10-PCS; 2024-09-29)
DX: O48.0 Post-term pregnancy (principal); O70.0 First degree perineal laceration during delivery; Z3A.40 40 weeks gestation of pregnancy; Z37.0 Single live birth

== ENCOUNTER → 2025-06-12 | Outpatient (REF) | payer MEDICAID, OTHER ==
[2025-06-15 17:03] LABS: HPV APTIMA Not Detected (Not Detected)
== END ==
LOC: M SFHCWAGY 17:18
PROVIDERS: ATTEND Advanced Practice Midwife
DX: Z12.4 Encounter for screening for malignant neoplasm of cervix (principal); R87.610 Atypical squamous cells of undetermined significance on cytologic smear of cervix (ASC-US)